=== PATIENT | female | born 1995 | race Two or more races ===

== ENCOUNTER 2018-01-17 02:18 | Emergency (ER) | payer BC, MEDICAID ==
--- NOTE | 2018-01-17 02:28 | ED Physician Chart ---
ED Septic Shock - . Is Septic Shock (SBP<90, OR Lactate>4 mmol\L) present?: No - Time of Reassessment Time of Reassessment: 02:29
[2018-01-17] MEDS ORDERED: Sodium Chloride 0.9% 1,000 ML IV ONE (02:45)
[2018-01-17 03:02] LABS: EOSINOPHILE ABSOLUTE 0.1 Th/cmm (0.1-0.4); MANUAL DIFF REQUIRED? YES
[2018-01-17 03:04] LABS: HEMOGLOBIN 15.8 gm/dL (12-16)
[2018-01-17 03:09] LABS: HEMATOCRIT 46.8 % (41.0-60); LYMPHOCYTE ABSOLUTE 0.2 Th/cmm (1.5-3.0); MEAN CELL VOLUME 84.2 fl (81-100); MEAN CORPUSCULAR HEMOGLOBIN 28.5 pg (27.0-31.0); MEAN CORPUSCULAR HGB CONC 33.8 pg (28.0-36.0); MEAN PLATELET VOLUME 8.2 fl; MONOCYTE ABSOLUTE 0.7 Th/cmm (0.3-1.0); NEUTROPHILE ABSOLUTE 16.8 Th/cmm (1.8-8.0); PLATELET COUNT 286 Th/cmm (150-400); RED BLOOD COUNT 5.56 Mil/cmm (3.80-5.10); RED CELL DISTRIBUTION WIDTH 12.2 % (11.5-20.0)
[2018-01-17 03:16] LABS: WHITE BLOOD COUNT 17.8 Th/cmm (4.8-10.8)
[2018-01-17 03:19] LABS: ALB/GLOB RATIO 1.7 (1.0-1.8); ALKALINE PHOSPHATASE 57 U/L (34-104); ANION GAP 13.6 (7.0-16.0); BILIRUBIN,TOTAL 0.6 mg/dL (0.3-1.0); BUN - UREA NITROGEN 13 mg/dL (7-25); CALCIUM SERUM 9.8 mg/dL (8.6-10.3); CARBON DIOXIDE 23.4 mEq/L (21.0-31.0); CHLORIDE 103 mEq/L (98-107); CREATININE - SERUM 0.9 mg/dL (0.6-1.2); GFR AFRICAN-AMERICAN > 60.0 ml/min (>90); GFR NON AFRICAN-AMERICAN > 60.0 ml/min; GLUCOSE 154 mg/dL (70-105); SGOT 17 U/L (13-39); SGPT/ALT 13 U/L (7-52); SODIUM SERUM 136 mEq/L (136-145)
[2018-01-17] MEDS ORDERED: cefTRIAXone 2 GM in Sodium Chloride 0.9% 100 ML IV ONE (03:19)
[2018-01-17 03:53] LABS: AMYLASE SERUM 54 U/L (29-103); LIPASE 20 U/L (11-82)
[2018-01-17 03:54] LABS: BAND NEUTROPHILE 7 % (0-10); BASOPHIL 0 % (0-3); EOSINOPHIL 1 % (0-5); LYMPHOCYTE 3 % (20-50); MONOCYTE 2 % (2-10); NEUTROPHILS 87 % (40-80); PLATELET ESTIMATE ADEQUATE (NORMAL); PLATELET MORPHOLOGY NORMAL (NORMAL); TOTAL CELLS COUNTED 100
[2018-01-17 04:44] LABS: URINE MICROSCOPIC INDICATED? YES; URINE SOURCE CLEAN C
[2018-01-17 04:46] LABS: URINE BILIRUBIN NEGATIVE (NEGATIVE); URINE BLOOD NEGATIVE (NEGATIVE); URINE GLUCOSE (UA) NEGATIVE (NEGATIVE); URINE KETONE 15 mg/dL (NEGATIVE); URINE LEUKOCYTE ESTERASE NEGATIVE (NEGATIVE); URINE NITRATE NEGATIVE (NEGATIVE); URINE PH 5.5 (4.6 - 8.0); URINE PROTEIN TRACE mg/dL (NEGATIVE); URINE UROBILINOGEN 0.2 E.U./dL (0.2 - 1.0)
[2018-01-17 04:59] LABS: URINE COLOR BROWN
[2018-01-17 05:05] LABS: URINE BACTERIA NONE SEEN /hpf (NONE SEEN); URINE CLARITY CLEAR (CLEAR); URINE EPITHELIAL CELLS FEW /lpf (FEW); URINE RBC NONE SEEN /hpf (0-5); URINE WBC 0-2 /hpf (0-5)
--- NOTE | 2018-01-17 09:21 | Diagnostic Imaging Report ---
CT abdomen and pelvis without intravenous contrast Indication: Elevated white blood cell count Comparison: None, Technique: Axial images were obtained from the lung bases to the bilateral proximal femurs without IV contrast. Coronal reconstructions were made. total DLP: 465, CTDI9.2 FINDINGS: Hypoventilatory and atelectatic changes of the lung bases are noted. Assessment of the solid organs is limited due to lack of IV contrast. Exam is also limited due lack of oral contrast. No focal hepatic lesions. No focal splenic, pancreatic, or adrenal lesions. No evidence hydronephrosis or focal renal lesions. Nonspecific fluid-filled loops of small bowel are noted with questionable minimal thickening of small bowel loops within the pelvis. Moderate stool is noted. The appendix is partially visualized. There may be tiny high density within the appendix. Pockets of gas are also seen within the appendix. No surrounding inflammatory changes. No free air or free fluid identified. The osseous structures demonstrate no acute abnormalities. IMPRESSION: Moderate fluid distended loops of small bowel with suggestion of mild small bowel wall thickening within the lower abdomen and pelvis. Findings may be due to underlying infectious inflammatory process/enteritis. Clinical correlation is recommended. Partially visualized appendix which appears to contain air. Punctate high density with appendix may be due to d secretions or possible punctate appendicolith. No evidence of surrounding inflammation. No evidence of acute appendicitis at this time. No evidence of free fluid or free air.
== END 2018-01-17 05:45 | disposition home or self-care (01) ==
LOC: ER 02:18
DX: K52.9 Noninfective gastroenteritis and colitis, unspecified (principal)
CPT/HCPCS: 99285; 96365; 96375; 74176; 36415; 83605; 85007; 85027; 85025; 81001; 82150; 83690; 80053; 87040; Q0162; J2405; J0696 ×2; J7030